=== PATIENT | male | born 1930 | race Caucasian/White ===

== ENCOUNTER 2019-03-07 18:51 | Inpatient (IN) | payer MEDICARE, OTHER ==
[~2019-03-07] VITALS: Ht 172.7 cm; Wt 70.5 kg
[2019-03-07 18:55] VITALS: Ht 172.7 cm; Wt 70.5 kg
--- NOTE | 2019-03-07 18:59 | NUR ---
PER MEDIC PT FAMILY CALLED WHEN PT SEEMED TO HAVE UNUSUAL WEAKNESS. PER MEDIC PT DOES NOT NORMALY HAVE SHAKING AND IS ABLE TO STAND. PER MEDIC PT UPON ARRIVE OTHOSTATIC VITALS WERE WITHIN PT NORMAL RANGE. PT RECEIVED 300CC BOLUS FROM MEDIC. PER FAMILY PT WAS POINTING TO STOMACH AND ID VOMIT TODAY. PER PT FAMILY "THINKS HE FAINTED" PER NO RESPONSE WHEN FAMILY WAS TRYING TO ORIENT PT. PER FAMILY PT HAS SYNCOPAL EPISODES OFTEN. VSS. NO TRAUMA NOTED. PT IS APHASIC AND IS NORMAL PER FAMILY. PERRLA NOTED. PER FAMILY PT IS NORMAL DEHYDRATED. NO DISTRESS NOTED. PER FAMILY PT IS NOW ACTING WITHIN NORMAL LIMITS. DR. WHITTAKER AT BEDSIDE FOR MSE.
--- NOTE | 2019-03-07 19:19 | NUR ---
REPORT GIVEN TO MAEGAN ALAS TO ASSUME CARE OF PT.
[2019-03-07] MEDS ORDERED: PROTONIX40 MG PO (19:26)
[2019-03-07] MEDS ORDERED: NAMENDA10 M2 PO (19:26)
[2019-03-07] MEDS ORDERED: ARICEPT5 MG PO (19:26)
[2019-03-07] MEDS ORDERED: FLO4 PO (19:27)
[2019-03-07] MEDS ORDERED: LOVASTATIN20 MG PO (19:27)
[2019-03-07] MEDS ORDERED: SEROQUEL25 MG PO (19:27)
--- NOTE | 2019-03-07 19:29 | NUR ---
PT PROVIDED WITH URINAL AND EDUCATED ON THE NEED FOR A URINE SAMPLE.
[2019-03-07 19:37] LABS: BASOPHIL % 0.9 % (0-2); PLATELET COUNT 165 x10^3mcL (130-400); RED CELL DISTRIBUTION WIDTH 13.5 % (11.5-14.5)
[2019-03-07 19:42] LABS: CARBON DIOXIDE 28.6 mmol/L (21-32); CHLORIDE SERUM 103 mmol/L (98-107); CREATININE SERUM 1.5 mg/dL (0.7-1.3); GLUCOSE SERUM 103 mg/dL (74-106); POTASSIUM SERUM 4.4 mmol/L (3.5-5.1); SODIUM SERUM 140 mmol/L (136-145)
[2019-03-07 19:48] LABS: ALBUMIN 3.6 g/dL (3.4-5.0); ALKALINE PHOSPHATASE 99 U/L (46-116); ALT/SGPT 19 U/L (16-63); AST/SGOT 22 U/L (15-37); BILIRUBIN TOTAL 0.6 mg/dL (0.20-1.00); CHOLESTEROL 171 mg/dL (<200); CHOLESTEROL/HDL RATIO 3.4; HDL CHOLESTEROL 50 mg/dL (40-60); LIPASE 217 IU/L (73-393); TOTAL PROTEIN, SERUM 7.2 g/dL (6.4-8.2); TRIGLYCERIDES 67 mg/dL (<150)
[2019-03-07 19:55] LABS: T3 TOTAL 0.99 ng/mL
--- NOTE | 2019-03-07 20:02 | NUR ---
PT OFF THE FLOOR FOR CT SCAN.
[2019-03-07 20:19] LABS: FREE T4 1.19 ng/dL (0.76-1.46); FREE THYROXINE INDEX 3.2 ug/dL (1.4-4.5); T4(THYROXINE) 8.3 ug/dL (4.7-13.3)
--- NOTE | 2019-03-07 21:01 | NUR ---
PT HAD AN EPISODE OF INCONTINENCE TO URINE. PT CLEANED AND SHEETS REPLACED. PT VITALS STABLE. NO ACUTE DISTRESS NOTED.
--- NOTE | 2019-03-07 21:02 | NUR ---
RT AT BEDSIDE TO DRAW ABG.
[2019-03-07 21:29] LABS: UA SPECIFIC GRAVITY <=1.005 (1.005-1.035); microscopic required? YES; urine erythrocyte TRACE (NEGATIVE)
--- NOTE | 2019-03-07 22:08 | NUR ---
GAVE REPORT TO EVETTE BONE TO ASSUME CARE OF PT.
--- NOTE | 2019-03-07 22:30 | NUR ---
RECEIVED PT FROM ED VIA [employer], CAME IN DUE TO SYNCOPE. PT IS ALERT AND AWAKE, W/ INCONHERENT WORDS. ABLE TO FOLLOW SIMPLE COMMANDS AT TIMES. NO FACIAL DROOP NOTED. HAND ENFORCEMENT MANAGER ARE EQUAL. NO SOB NOTED, LUNG SOUNDS DIMINISHED ON THE BASES, O2 SAT=97% RA. NO S/S OF CHEST PAIN/PRESSURE, SR ON THE MONITOR. NO S/S OF ABDOMINAL DISCOMFORT. URINE INCONTINENT. W/ ECCHYMOSIS ON RUE. IV SITE ON THE LAC IS PATENT AND INTACT. SIDE RAILS UPX2. CALL LIGHT ON REACH. HOB ELEVATED AT 45 DEG. SON AT BEDSIDE. WILL CONT TO MONITOR
[2019-03-07 23:14] VITALS: BP 117/98
--- NOTE | 2019-03-08 04:50 | NUR ---
PT HAS HIS EYES CLOSED, NO S/S OF PAIN AND SOB NOTED. PT'S SON AT BEDSIDE. STILL ON AIR MATTRESS. TURNED AND REPOSITIONED DURING THE SHIFT. IV SITE IS PATENT AND INTACT. SIDE RAILS UPX2. CALL LIGHT ON REACH. NEEDS ARE ATTENDED. WILL CONT TO MONITOR
--- NOTE | 2019-03-08 05:10 | NUR ---
RECEIVED PT FROM RADIO SURVEY WORKER RN SMITHA, BEDSIDE REPORT GIVEN. WILL CONTINUE TO MONITOR.
--- NOTE | 2019-03-08 05:10 | NUR ---
BEDSIDE REPORT GIVEN TO JU FOR CONTINUITY OF CARE
--- NOTE | 2019-03-08 05:57 | NUR ---
PT ANXIOUS AND AGITATED. DR. SOTO AT BEDSIDE SPEAKING WITH SON. PER DR. SOTO WILL ORDER SOMETHING FOR ANXIETY. LAB TECHNICAN AT BEDSIDE. WILL CONTINUE TO MONITOR.
[2019-03-08 06:27] LABS: BASOPHIL % 0.8 % (0-2); PLATELET COUNT 172 x10^3mcL (130-400); RED CELL DISTRIBUTION WIDTH 13.8 % (11.5-14.5)
[2019-03-08 06:28] VITALS: BP 159/64
[2019-03-08 07:07] LABS: CARBON DIOXIDE 28.1 mmol/L (21-32); CHLORIDE SERUM 107 mmol/L (98-107); CREATININE SERUM 1.3 mg/dL (0.7-1.3); MAGNESIUM 2.3 mg/dL (1.8-2.4); PHOSPHOROUS 3.5 mg/dL (2.5-4.9); POTASSIUM SERUM 3.7 mmol/L (3.5-5.1); SODIUM SERUM 146 mmol/L (136-145)
[2019-03-08 07:19] LABS: GLUCOSE SERUM 58 mg/dL (74-106)
--- NOTE | 2019-03-08 07:21 | NUR ---
PT IN BED SLEEPING. SON AT BEDSIDE. SON ASKING IF MEDICATION CAN BE GIVEN LATER. PER SON "HE HAS NOT SLEPT ALL NIGHT AND HE HAS BEEN UP FOR 10 HOURS. CAN WE JUST HOLD OFF UNTIL LATER" WILL CONTINUE TO MONITOR. CALL LIGHT IN REACH. BED IN LOWEST POSITION.
--- NOTE | 2019-03-08 07:27 | NUR ---
DR. CASTAÑEDA MADE AWARE OF GLUCOSE OF 58. PER DR. CASTAÑEDA WITH CHANGE IV FLUIDS FROM NS TO D5.
--- NOTE | 2019-03-08 08:26 | NUR ---
PT SITTING UP IN BED SLEEPING. SON AT BEDSIDE. PT CALM AT THIS TIME. GIVEN PO MEDS CRUSHED WITH PUDDING. PT TOLERATED WELL. SPOKE WITH DR. CASTAÑEDA PER DR. CASTAÑEDA DECREASE IV FLUIDS TO 10 ML/HR AND DR. CASTAÑEDA WILL ORDER ACCU CHECKS TO BE DONE ON PT. PT EATING BREAKFAST AND TOLERATING WELL. WILL CONTINUE TO MONITOR. CALL LIGHT IN REACH. BED IN LOWEST POSITION.
[2019-03-08 08:39] VITALS: BP 149/75
--- NOTE | 2019-03-08 09:07 | NUR ---
PT IN BED RESTING. PHYSICAL THERAPIST [place] WORKED WITH PT. PT TOLERATED WELL. PT CHANGED AND REPOSITIONED. NO ACUTE RESP DISTRESS NOTED ON RA. LAB AT BEDSIDE, DRAWING GLUCOSE. SPOKE WITH SON, PT EATS MORE SOFT FOODS AND DRINKS ENSURE AT HOME. PAGED DR. CASTAÑEDA SEE ABOUT CHANGING DIET, AWAITING CALL BACK. WILL CONTINUE TO MONITOR. CALL LIGHT IN REACH. BED IN LOWEST POSITION.
[2019-03-08 09:49] VITALS: BP 149/75
--- NOTE | 2019-03-08 11:27 | NUR ---
SPOKE WITH DR. CASTAÑEDA REGARDING PT DIET. PER DR. CASTAÑEDA WILL CHANGE DIET TO MECHANICAL SOFT DIET AND WILL ADD ENSURE.
--- NOTE | 2019-03-08 12:31 | NUR ---
PT IN BED. PT GETTING AGITATED. PT TRYING TO PUT BLANKETS OVER HIS FACE. NEPHEW AT BEDSIDE. NEPHEW STATES PT OFTEN GETS LIKE THIS AT HOME AND PT GETS SITALOPRAM. PAGED DR. CASTAÑEDA. AWAITING CALL BACK.
[2019-03-08 12:39] VITALS: BP 149/76
--- NOTE | 2019-03-08 13:06 | NUR ---
PT SITTING UP IN BED EATING LUNCH. PT CALMER AT THIS TIME. SON AT BEDSIDE. NO ACUTE RESP DISTRESS NOTED ON RA. SON STATES "HE NORMALLY GETS AGITATED AROUND THIS TIME AT HOME AND AROUND LATE EVENING. WE USUALLY GIVEN HIM SITALOPRAM AT HOME. I WILL FIND OUT THE DOSE AND LET YOU KNOW" WILL UPDATE MED REC ON RECEIVED. WILL CONTINUE TO MONITOR. CALL LIGHT IN REACH. BED IN LOWEST POSITION.
[2019-03-08] MEDS ORDERED: CITALOPRAM HYDR20 M1 PO (13:49)
--- NOTE | 2019-03-08 14:28 | NUR ---
PT SITTING UP IN BED. PT CHANGED AND REPOSITIONED ON LEFT SIDE. SCDS PLACED ON PT. PT ANXIOUS. SON AT BEDSIDE. SON STATES "HE NORMALLY GETS ANXIOUS AROUND THIS TIME." GIVEN HALDOL IM TO DANE. TOLERATED WELL. SPOKE WITH PHARMACIST REGARDING HALDOL PER PHARMACIST MONITOR PT FOR PROLONGED QT. COMMERCIAL DRONE PILOT CONCHA NOTIFIED. WILL CONTINUE TO MONITOR. CALL LIGHT IN REACH. BED IN LOWEST POSITION.
[2019-03-08 16:52] VITALS: BP 128/63
--- NOTE | 2019-03-08 17:30 | NUR ---
SON AT BEDSIDE. SON STATES PAIN HAS BEEN AGITATED SINCE RECEIVING HALDOL IM. SON STATES "HE HAS NOT STOPPED, HES MESSING WITH THE SHEETS, MESSING WITH IV. SON ASKING IF PT CAN HAVE SOMETHING TO RELAX. SPOKE WITH DR. CASTAÑEDA PER DR. CASTAÑEDA HE DOES NOT WANT TO GIVE PT ANY MORE SEDATIVES AT THIS TIME. PER DR. CASTAÑEDA WILL ORDER SOMETHING FOR THE PT TO BE ABLE TO SLEEP. SPOKE WITH SON AT BEDSIDE. SON OKAY WITH WAITING UNTIL NIGHT. WILL CONTINUE TO MONITOR. CALL LIGHT IN REACH. BED IN LOWEST POSITION.
--- NOTE | 2019-03-08 19:25 | NUR ---
PT RECEIVED AWAKE AND ALERT, CONFUSED, INCOMPREHENSIBLE SPEECH. TELE #15, NO S/S OF CP/PRESSURE OBSERVED. PULSES PALPABLE, NO EDEMA PRESENT. BREATHING IS EVEN AND UNLABORED, NO RESP DISTRESS NOTED. ABD SOFT AND NONDISTENDED, NO N/V PRESENT. PT HAS EPISODES OF URINARY INCONTINENCE. GENERALIZED WEAKNESS, ON AIR MATTRESS. ECCHYMOSIS TO RUE, TELEVISION ANTENNA INSTALLER. NO S/S OF PAIN OBSERVED. IVF INFUSING WELL TO LAC, SITE WNL. SON AT BEDSIDE. NO ACUTE DISTRESS NOTED. CALL LIGHT WITHIN REACH. WILL CONT TO MONITOR.
[2019-03-08 21:10] VITALS: BP 140/75
--- NOTE | 2019-03-08 21:10 | NUR ---
PT'S SON-ABDI REQUESTING ATIVAN FOR PT. PT'S SON STATES, "MY DAD HASN'T SLEPT FOR OVER 24 HRS AND HE'S BEEN SO RESTLESS. HIS SEROQUEL NORMALLY HELPS HIM FALL ASLEEP, BUT THAT DIDN'T HELP HIM AT ALL LAST NIGHT AND THEY SAID THEY WOULD GIVE HIM SOMETHING ELSE TO HELP HIM." DR THOMAS MADE AWARE, AWAITING ORDER AT THIS TIME.
--- NOTE | 2019-03-08 21:53 | NUR ---
DUE MEDS CRUSHED AND GIVEN WITH PUDDING. ASPIRATION PRECAUTIONS IN PLACE. PT TOLERATED WELL. ONE TIME ATIVAN PO GIVEN ORDERED PER EMAR. NO ACUTE DISTRESS NOTED. WILL CONT TO MONITOR.
--- NOTE | 2019-03-09 00:50 | NUR ---
PT RESTING IN BED WITH EYES CLOSED, BUT IS EASILY AROUSABLE. BREATHING IS EVEN AND UNLABORED, NO RESP DISTRESS NOTED. NO S/S OF PAIN OBSERVED. IVF INFUSING WELL, SITE WNL. NO ACUTE DISTRESS NOTED. CALL LIGHT WITHIN REACH. WILL CONT TO MONITOR.
[2019-03-09 06:26] VITALS: BP 155/84
[2019-03-09 06:33] LABS: BASOPHIL % 0.8 % (0-2); PLATELET COUNT 174 x10^3mcL (130-400); RED CELL DISTRIBUTION WIDTH 13.8 % (11.5-14.5)
--- NOTE | 2019-03-09 06:37 | NUR ---
PT SLEPT WELL THROUGHOUT THE EVENING. BREATHING IS EVEN AND UNLABORED, NO RESP DISTRESS NOTED. NO S/S OF PAIN OBSERVED. PT INCONTINENT OF URINE, PT CLEANED AND REPOSITIONED, OPTIFOAM PLACED. SKIN TO COCCYX AND BUTTOCKS IS WARM, DRY AND INTACT. NO ACUTE CHANGES ENCOUNTERED DURING SHIFT. ALL NEEDS MET AND ANTICIPATED. IVF INFUSING WELL, SITE WNL. CALL LIGHT WITHIN REACH, BED ALARM ON. WILL ENDORSE CARE TO AM NURSE.
--- NOTE | 2019-03-09 06:45 | NUR ---
PT'S SON-ABDI REQUESTING TO SPEAKING WITH ATTENDING DR REGARDING PT'S CARE. PT'S SON STATES, "I WOULD LIKE TO TALK TO HIS DR TO SEE IF THEY CAN CHANGE HIS IV ANTIBIOTICS TO AN ORAL ANTIBIOTICS SO WE CAN TRY TO TAKE HIM TODAY." INSTRUCTED SON THAT DRS ARE LIKELY TO MAKE ROUNDS IN THE AM, PT'S SON REQUESTING A CALL FROM DR IF HE IS NOT AT BEDSIDE. WILL ENDORSE TO AM NURSE. ABDI BEARD - .
[2019-03-09 07:05] LABS: CALCIUM 8.1 mg/dL (8.5-10.1); CARBON DIOXIDE 28.3 mmol/L (21-32); CHLORIDE SERUM 103 mmol/L (98-107); CREATININE SERUM 1.3 mg/dL (0.7-1.3); GLUCOSE SERUM 79 mg/dL (74-106); SODIUM SERUM 141 mmol/L (136-145)
[2019-03-09 07:06] LABS: MAGNESIUM 1.9 mg/dL (1.8-2.4); PHOSPHOROUS 3.9 mg/dL (2.5-4.9)
--- NOTE | 2019-03-09 07:25 | NUR ---
PT IS ALERT, CONFUSED WITH GARLED SPEECH. RESP EVEN AND UNLABORED. LUNG SOUNDS DIMINISHED BILATERALLY. ON R/A. TELE [address] READING NSR. ABDOMEN SOFT, NONTENDER, NONDISTENDED. BOWEL SOUNDS ACTIVE X 4 QUADS. DENIES N/V/D. SKIN CDI, NO EDEMA NOTED. PERINEAL REDNESS NOTED, HYDRAGUARD HAS BEEN APPLIED. PT ON [facility] SOFT CHOPPED DIET. AIR MATRESS IN PLACE. PT WILL BE TURNED AND REPOSITIONED Q 2 HOURS AND PRN. IV CATH TO LAC N/S LOCKED. SITE WNL. CALL LIGHT WITHIN REACH. FALL PROTOCOL MAINTAINED. ASPIRATIONS PRECAUTION IN PLACE. NO S/S OF PAIN OR DISCOMFORT AT THIS TIME. SON AT BEDSIDE.
--- NOTE | 2019-03-09 07:32 | NUR ---
PT IN NO ACUTE DISTRESS. CONTINUITY OF CARE ENDORSED TO KYARA ALAS. ALL QUESTIONS AND CONCERNS ADDRESSED.
[2019-03-09 08:21] VITALS: BP 147/89
--- NOTE | 2019-03-09 09:16 | NUR ---
PT'S FAMILY MEMBER DECLINED HHN TX AT 0800 THIS MORNING, ADVISED PT NEEDED HIS SLEEP AND NOT TO WAKE HIM AND TO COME BACK LATER. I CAME BACK TO SEE PT AT 0915 AND THE FAMILY SAID HE HAD JUST STARTED EATING BREAKFAST AND TO COME BACK AGAIN AT A LATER TIME. BOTH TIMES FAMILY WAS ADVISED TO USE CALL LIGHT IF PT NEEDED TX SOONER. WILL CONTINUE TO CHECK ON PT.
[2019-03-09] MEDS ORDERED: LEVAQUIN750 MG PO (09:24)
--- NOTE | 2019-03-09 09:43 | NUR ---
PT IS SITTING UP IN BED EATING BREAKFAST WITH SON ASSISTING WITH FEEDING. DUE MEDS GIVEN CRUSHED IN SUGAR FREE PUDDING. PT NOTED WITH COUGH AFTER DRINKING WATER. SON STATED PT HAS A HX OF COUGHING AFTER DRINKING THIN LIQUIDS. REPORTED OBSERVATION TO ARIADNA GREENE NP. ARIADNA STATED A SPEECH EVAL WILL BE ORDERED. SON AGREED WITH POC IF IT DOESN'T DELAY THE DISCHARGE UNTIL LATE AFTERNOON. BED IN LOWEST POSITION. CALL LIGHT WITHIN REACH. FALL PROTOCOL IN PLACE.
--- NOTE | 2019-03-09 10:23 | NUR ---
PT IS RECEIVING S/T EVAL AT THIS TIME.
--- NOTE | 2019-03-09 10:30 | NUR ---
S/T EVAL COMPLETED. PT IS TO HAVE PUREED DIET AND NTL. REPORTED TO ARIADNA GREENE NP. ARIADNA WILL NOTE NEW FINDING.
--- NOTE | 2019-03-09 10:35 | NUR ---
PT WAS SEEN FOR DYSPHAGIA. PT WAS ABLE TOS AFELY SWALLOW PUREE DIET WITH NECTAR THICK LIQUID WITHOUT S/S OF ASPIRATION. PT IS NOT IN POSITION FOR TRIALS OF MS DIET. PT HAD MILD COGH FOR THIN LIQUID PER FAMILY. RECOMMENDATION PUREE DIET WITH NECTAR THICK LIQUID SMALL BITES AND SIPS ONLY 1:1 SUPERVISION.
[2019-03-09 11:00] VITALS: BP 147/89
--- NOTE | 2019-03-09 12:11 | NUR ---
PT DISCHARGED TO HOME IN NO DISTRESS. DISCHARGE INSTRUCTIONS REVIEWED. ALL QUESTIONS ANSWERED, ALL FORMS SIGNED. RX GIVEN TO PT'S SON. IV CATH TO LAC REMOVED INTACT. SITE WNL. NO S/S OF INFECTION OR INFILTRATION. COVERED WITH GAUZE AND BANDAID. VS: T 97.7, HR 71, RR 17, B/P 147/89, O2 SAT=98% R/A. TELE MONITOR 15 TAKEN OFF PT AND RETURNED TO SALES MARKETING DIRECTOR. PT DENIES PAIN UPON DISCHARGE. PT TAKEN TO LOBBY IN W/C ASSISTED BY AZAR AND BOTH SONS.
== END 2019-03-09 12:00 | disposition home health service (06) | DRG 194 ==
LOC: ED 18:51 → MU 21:55 → DU 21:55 → MU 22:50 → DU 23:07
PROVIDERS: Specialist; ADMIT General Practice
DX: J18.9 Pneumonia, unspecified organism (principal); R47.01 Aphasia; R55 Syncope and collapse; R13.10 Dysphagia, unspecified; K80.20 Calculus of gallbladder without cholecystitis without obstruction; R32 Unspecified urinary incontinence; G47.30 Sleep apnea, unspecified; G30.9 Alzheimer's disease, unspecified; F02.80 Dementia in other diseases classified elsewhere, unspecified severity, without behavioral disturbance, psychotic disturbance, mood disturbance, and anxiety; F41.9 Anxiety disorder, unspecified; I10 Essential (primary) hypertension; Z96.653 Presence of artificial knee joint, bilateral; Z68.22 Body mass index [BMI] 22.0-22.9, adult
CPT/HCPCS: 36600; 82947; 82962; 83880; 84439; 92526-GN; 92610-GN; 97116-GP; G0378; J1630; J1956; J7030; J7620; Q0092

== ENCOUNTER 2019-11-14 20:26 | Inpatient (IN) | payer OTHER, MEDICARE ==
[~2019-11-14] VITALS: Ht 172.7 cm; Wt 79.4 kg
[~2019-11-14 20:26] MED LIST: ARICEPT5 MG PO; CITALOPRAM HYDR20 M1 PO; FLO4 PO; LEVAQUIN750 MG PO; LOVASTATIN20 MG PO; NAMENDA10 M2 PO; PROTONIX40 MG PO; SEROQUEL25 MG PO
[2019-11-14 21:37] LABS: BASOPHIL % 0.8 % (0-2); PLATELET COUNT 208 x10^3mcL (130-400); RED CELL DISTRIBUTION WIDTH 13.6 % (11.5-14.5)
[2019-11-14 21:41] LABS: CALCIUM 8.7 mg/dL (8.5-10.1); CARBON DIOXIDE 31.2 mmol/L (21-32); CHLORIDE SERUM 101 mmol/L (98-107); CREATININE SERUM 1.5 mg/dL (0.7-1.3); GLUCOSE SERUM 137 mg/dL (74-106); POTASSIUM SERUM 4.1 mmol/L (3.5-5.1); SODIUM SERUM 138 mmol/L (136-145)
[2019-11-14 21:46] LABS: ALKALINE PHOSPHATASE 117 U/L (46-116); ALT/SGPT 28 U/L (16-63); AST/SGOT 24 U/L (15-37); BILIRUBIN TOTAL 0.7 mg/dL (0.20-1.00); TOTAL PROTEIN, SERUM 7.7 g/dL (6.4-8.2)
[2019-11-14 21:47] LABS: ALBUMIN 3.3 g/dL (3.4-5.0)
[2019-11-14 22:01] LABS: C REACTIVE PROTEIN 1.2 mg/dL (<=0.9)
[2019-11-14] MEDS ORDERED: CIPRO500 MG PO (22:59)
[2019-11-14] MEDS ORDERED: BACTRIM1 TAB (22:59)
[2019-11-15] VITALS (7 sets, daily range): BP systolic 139–186; BP diastolic 72–97; Ht 172.7 cm; Wt 79.4 kg
[2019-11-15 05:39] LABS: BASOPHIL % 0.9 % (0-2); PLATELET COUNT 217 x10^3mcL (130-400); RED CELL DISTRIBUTION WIDTH 13.4 % (11.5-14.5)
[2019-11-15 05:53] LABS: CALCIUM 8.8 mg/dL (8.5-10.1); CARBON DIOXIDE 28.6 mmol/L (21-32); CHLORIDE SERUM 102 mmol/L (98-107); CREATININE SERUM 1.3 mg/dL (0.7-1.3); GLUCOSE SERUM 105 mg/dL (74-106); POTASSIUM SERUM 3.9 mmol/L (3.5-5.1); SODIUM SERUM 136 mmol/L (136-145)
[2019-11-15] MEDS ORDERED: COZAAR25 M1 PO (07:36)
[2019-11-16 04:17] LABS: UA SPECIFIC GRAVITY 1.025 (1.005-1.035); microscopic required? YES; urine erythrocyte 2+ (NEGATIVE)
[2019-11-16 06:10] VITALS: BP 172/80
[2019-11-16 06:21] VITALS: BP 155/72
[2019-11-16 07:24] LABS: BASOPHIL % 0.6 % (0-2); PLATELET COUNT 226 x10^3mcL (130-400); RED CELL DISTRIBUTION WIDTH 13.6 % (11.5-14.5)
[2019-11-16 07:33] LABS: ALKALINE PHOSPHATASE 121 U/L (46-116); ALT/SGPT 28 U/L (16-63); AST/SGOT 37 U/L (15-37); BILIRUBIN TOTAL 1.4 mg/dL (0.20-1.00); C REACTIVE PROTEIN 1.9 mg/dL (<=0.9); CALCIUM 8.8 mg/dL (8.5-10.1); CARBON DIOXIDE 26.6 mmol/L (21-32); CHLORIDE SERUM 102 mmol/L (98-107); CREATININE SERUM 1.5 mg/dL (0.7-1.3); GLUCOSE SERUM 97 mg/dL (74-106); MAGNESIUM 2.3 mg/dL (1.8-2.4); PHOSPHOROUS 3.5 mg/dL (2.5-4.9); POTASSIUM SERUM 3.9 mmol/L (3.5-5.1); SODIUM SERUM 139 mmol/L (136-145); TOTAL PROTEIN, SERUM 7.7 g/dL (6.4-8.2)
[2019-11-16 07:37] LABS: ALBUMIN 3.2 g/dL (3.4-5.0)
[2019-11-16 09:00] VITALS: BP 135/72
[2019-11-16 13:30] VITALS: BP 127/61
[2019-11-16 17:30] VITALS: BP 147/76
[2019-11-16 19:50] VITALS: BP 142/62
[2019-11-17 04:58] VITALS: BP 156/79
[2019-11-17 08:21] VITALS: BP 164/78
[2019-11-17 08:59] LABS: BASOPHIL % 0.7 % (0-2); PLATELET COUNT 218 x10^3mcL (130-400); RED CELL DISTRIBUTION WIDTH 13.3 % (11.5-14.5)
[2019-11-17 09:16] LABS: ALBUMIN 3.3 g/dL (3.4-5.0); ALKALINE PHOSPHATASE 121 U/L (46-116); ALT/SGPT 29 U/L (16-63); AST/SGOT 48 U/L (15-37); C REACTIVE PROTEIN 2.3 mg/dL (<=0.9); CALCIUM 8.7 mg/dL (8.5-10.1); CARBON DIOXIDE 25.7 mmol/L (21-32); CHLORIDE SERUM 103 mmol/L (98-107); CREATININE SERUM 1.5 mg/dL (0.7-1.3); GLUCOSE SERUM 104 mg/dL (74-106); MAGNESIUM 2.2 mg/dL (1.8-2.4); PHOSPHOROUS 3.6 mg/dL (2.5-4.9); POTASSIUM SERUM 3.6 mmol/L (3.5-5.1); SODIUM SERUM 139 mmol/L (136-145); TOTAL PROTEIN, SERUM 7.8 g/dL (6.4-8.2)
[2019-11-17] MEDS ORDERED: LEVAQUIN500 M1 PO (13:03)
[2019-11-17 13:42] VITALS: BP 158/85
[2019-11-17 14:28] VITALS: BP 158/85
[2019-11-17] MEDS ORDERED: SEROQUEL25 MG PO (15:56)
== END 2019-11-17 16:25 | disposition home or self-care (01) | DRG 137 ==
LOC: ED 20:26 → DU 23:14
PROVIDERS: Emergency Medicine; ADMIT Internal Medicine
DX: J69.0 Pneumonitis due to inhalation of food and vomit (principal); N17.0 Acute kidney failure with tubular necrosis; E43 Unspecified severe protein-calorie malnutrition; G30.9 Alzheimer's disease, unspecified; J44.9 Chronic obstructive pulmonary disease, unspecified; F02.80 Dementia in other diseases classified elsewhere, unspecified severity, without behavioral disturbance, psychotic disturbance, mood disturbance, and anxiety; F41.9 Anxiety disorder, unspecified; R32 Unspecified urinary incontinence; G47.33 Obstructive sleep apnea (adult) (pediatric); K21.9 Gastro-esophageal reflux disease without esophagitis; F32.9 Major depressive disorder, single episode, unspecified; E78.5 Hyperlipidemia, unspecified; N18.9 Chronic kidney disease, unspecified; Z79.899 Other long term (current) drug therapy; Z68.26 Body mass index [BMI] 26.0-26.9, adult
CPT/HCPCS: 83880; 85378; 87804; 92526-GN; 92610-GN; G0378; J0360; J1644; J1940; J1956; J2060; J2543; J3370; J3490; J7030; J7040; Q0092

== ENCOUNTER 2020-02-26 10:03 | Inpatient (IN) | payer OTHER, MEDICARE ==
[~2020-02-26] VITALS: Ht 172.7 cm; Wt 74.8 kg
[~2020-02-26 10:03] MED LIST changes: +BACTRIM1 TAB; +CIPRO500 MG PO; +COZAAR25 M1 PO; +LEVAQUIN500 M1 PO
[2020-02-26 10:22] VITALS: Ht 172.7 cm; Wt 74.8 kg
[2020-02-26 10:43] LABS: BASOPHIL % 0.7 % (0-2); PLATELET COUNT 208 x10^3mcL (130-400)
[2020-02-26 10:55] LABS: CALCIUM 8.6 mg/dL (8.5-10.1); CARBON DIOXIDE 29.4 mmol/L (21-32); CHLORIDE SERUM 102 mmol/L (98-107); GLUCOSE SERUM 166 mg/dL (74-106); POTASSIUM SERUM 4.3 mmol/L (3.5-5.1); SODIUM SERUM 138 mmol/L (136-145)
[2020-02-26 11:00] LABS: ALBUMIN 3.2 g/dL (3.4-5.0); ALKALINE PHOSPHATASE 127 U/L (46-116); ALT/SGPT 19 U/L (16-63); AST/SGOT 15 U/L (15-37); BILIRUBIN TOTAL 0.81 mg/dL (0.20-1.00); TOTAL PROTEIN, SERUM 7.6 g/dL (6.4-8.2)
[2020-02-26 14:39] LABS: C REACTIVE PROTEIN 1.4 mg/dL (<=0.9)
[2020-02-26 15:06] LABS: T3 TOTAL 0.78 ng/mL
[2020-02-26 15:15] LABS: FREE T4 1.01 ng/dL (0.76-1.46); FREE THYROXINE INDEX 2.3 ug/dL (1.4-4.5); T4(THYROXINE) 6.7 ug/dL (4.7-13.3)
[2020-02-26 15:19] LABS: MAGNESIUM 2.2 mg/dL (1.8-2.4)
[2020-02-26] MEDS ORDERED: SEROQUEL50 M1 PO (15:30)
[2020-02-26 16:41] VITALS: BP 113/68
[2020-02-26 20:35] VITALS: BP 167/73
[2020-02-26 22:00] VITALS: BP 115/62
[2020-02-27 06:05] VITALS: BP 171/77
[2020-02-27 06:42] VITALS: BP 151/67
[2020-02-27 08:10] VITALS: BP 162/63
[2020-02-27 09:20] LABS: microscopic required? YES; urine erythrocyte 1+ (NEGATIVE)
[2020-02-27 11:54] LABS: CALCIUM 8.6 mg/dL (8.5-10.1); CARBON DIOXIDE 29.8 mmol/L (21-32); CHLORIDE SERUM 101 mmol/L (98-107); CREATININE SERUM 1.5 mg/dL (0.7-1.3); GLUCOSE SERUM 145 mg/dL (74-106); POTASSIUM SERUM 3.7 mmol/L (3.5-5.1); SODIUM SERUM 138 mmol/L (136-145)
[2020-02-27 12:01] LABS: BASOPHIL % 0.6 % (0-2); PLATELET COUNT 223 x10^3mcL (130-400)
[2020-02-27 12:05] VITALS: BP 156/81
[2020-02-27 17:50] VITALS: BP 157/66
[2020-02-28 05:35] VITALS: BP 140/57
[2020-02-28] MEDS ORDERED: AUGMENTIN 875-1 EACH PO (16:39)
[2020-02-28 17:39] LABS: BASOPHIL % 0.6 % (0-2); PLATELET COUNT 211 x10^3mcL (130-400); RED CELL DISTRIBUTION WIDTH 14.4 % (11.5-14.5)
[2020-02-28 17:48] LABS: CALCIUM 8.3 mg/dL (8.5-10.1); CARBON DIOXIDE 34.4 mmol/L (21-32); CHLORIDE SERUM 105 mmol/L (98-107); CREATININE SERUM 1.7 mg/dL (0.7-1.3); GLUCOSE SERUM 128 mg/dL (74-106); POTASSIUM SERUM 4.1 mmol/L (3.5-5.1); SODIUM SERUM 141 mmol/L (136-145)
[2020-02-28 18:33] VITALS: BP 140/57
== END 2020-02-28 18:43 | disposition home health service (06) | DRG 139 ==
LOC: ED 10:03 → DU 14:26
PROVIDERS: Specialist; ADMIT Family Medicine; ATTEND Family Medicine
DX: J18.9 Pneumonia, unspecified organism (principal); N17.9 Acute kidney failure, unspecified; J44.0 Chronic obstructive pulmonary disease with (acute) lower respiratory infection; E11.22 Type 2 diabetes mellitus with diabetic chronic kidney disease; R55 Syncope and collapse; G30.9 Alzheimer's disease, unspecified; F02.80 Dementia in other diseases classified elsewhere, unspecified severity, without behavioral disturbance, psychotic disturbance, mood disturbance, and anxiety; J44.9 Chronic obstructive pulmonary disease, unspecified; R05 Cough; K21.9 Gastro-esophageal reflux disease without esophagitis; H91.90 Unspecified hearing loss, unspecified ear; N18.9 Chronic kidney disease, unspecified; Z96.653 Presence of artificial knee joint, bilateral; Z20.828 Contact with and (suspected) exposure to other viral communicable diseases; I12.9 Hypertensive chronic kidney disease with stage 1 through stage 4 chronic kidney disease, or unspecified chronic kidney disease; Z79.899 Other long term (current) drug therapy
CPT/HCPCS: 83880; 84439; 92526-GN; 92610-GN; C9113; G0378; J0456; J0696; J1644; J2060; J2543; J7030; J7050; Q0092; U0003-CS

== ENCOUNTER 2020-04-19 09:02 | Emergency (ER) | payer OTHER, MEDICARE ==
[~2020-04-19] VITALS: Ht 172.7 cm; Wt 54.4 kg
[~2020-04-19 09:02] MED LIST changes: +AUGMENTIN 875-1 EACH PO; +SEROQUEL50 M1 PO
[2020-04-19 09:05] VITALS: Ht 172.7 cm; Wt 54.4 kg
[2020-04-19 10:07] LABS: BASOPHIL % 0.4 % (0-2); PLATELET COUNT 197 x10^3mcL (130-400); RED CELL DISTRIBUTION WIDTH 13.4 % (11.5-14.5)
[2020-04-19 10:23] LABS: CALCIUM 8.5 mg/dL (8.5-10.1); CARBON DIOXIDE 28.3 mmol/L (21-32); CHLORIDE SERUM 103 mmol/L (98-107); CREATININE SERUM 1.7 mg/dL (0.7-1.3); GLUCOSE SERUM 133 mg/dL (74-106); POTASSIUM SERUM 4.6 mmol/L (3.5-5.1); SODIUM SERUM 136 mmol/L (136-145)
[2020-04-19 10:36] LABS: ALKALINE PHOSPHATASE 128 U/L (46-116); ALT/SGPT 27 U/L (16-63); AST/SGOT 21 U/L (15-37); BILIRUBIN TOTAL 0.79 mg/dL (0.20-1.00); MAGNESIUM 2.2 mg/dL (1.8-2.4)
[2020-04-19 10:38] LABS: ALBUMIN 3.3 g/dL (3.4-5.0)
[2020-04-19 12:19] VITALS: BP 144/60
== END 2020-04-19 12:19 | disposition home or self-care (01) ==
LOC: ED 09:02
PROVIDERS: Student in an Organized Health Care Education/Training Program
DX: N17.9 Acute kidney failure, unspecified (principal); I10 Essential (primary) hypertension; E11.9 Type 2 diabetes mellitus without complications; F03.90 Unspecified dementia, unspecified severity, without behavioral disturbance, psychotic disturbance, mood disturbance, and anxiety
CPT/HCPCS: 83880; Q0092

== ENCOUNTER 2020-06-16 11:49 | Inpatient (IN) | payer OTHER, MEDICARE ==
[~2020-06-16] VITALS: Ht 172.7 cm; Wt 81.6 kg
--- NOTE | 2020-06-16 12:30 | NUR ---
BIB [facility] AMB FOR FURTHER EVAL OF CHANGE IN LOC, AND INCREASE IN ALOC;PT HAS HX OF DEMENTIA, CHF AND PNEUMONIA, WELL UTI; PT SEEN BY PROVIDER, ORDERS RECD
[2020-06-16 12:34] VITALS: Ht 172.7 cm; Wt 81.6 kg
--- NOTE | 2020-06-16 13:02 | NUR ---
PT SEEN BY PROVIDER, ORDERS RECD; LABS DRAWN/IV INITIATED; UA STRAIGHT CATH COMPLETED AND SENT; S/W FAMILY MEMBER REGARDING PT HISTORY; CONT TO MONITOR
[2020-06-16 13:15] LABS: UA SPECIFIC GRAVITY 1.015 (1.005-1.035); microscopic required? YES; urine erythrocyte NEGATIVE (NEGATIVE)
[2020-06-16 13:30] LABS: CALCIUM 8.7 mg/dL (8.5-10.1); CARBON DIOXIDE 31.1 mmol/L (21-32); CHLORIDE SERUM 100 mmol/L (98-107); CREATININE SERUM 1.6 mg/dL (0.7-1.3); GLUCOSE SERUM 164 mg/dL (74-106); POTASSIUM SERUM 4.2 mmol/L (3.5-5.1); SODIUM SERUM 136 mmol/L (136-145)
[2020-06-16 13:35] LABS: ALKALINE PHOSPHATASE 144 U/L (46-116); ALT/SGPT 32 U/L (16-63); AST/SGOT 23 U/L (15-37); BILIRUBIN TOTAL 0.76 mg/dL (0.20-1.00); C REACTIVE PROTEIN 3.4 mg/dL (<=0.9); LACTIC DEHYDROGENASE (LDH) 349 U/L (100-190)
[2020-06-16 13:39] LABS: ALBUMIN 3.3 g/dL (3.4-5.0); TOTAL PROTEIN, SERUM 8.3 g/dL (6.4-8.2)
[2020-06-16 13:48] LABS: BASOPHIL % 0.6 % (0-2); PLATELET COUNT 227 x10^3mcL (130-400); RED CELL DISTRIBUTION WIDTH 13.4 % (11.5-14.5)
--- NOTE | 2020-06-16 14:35 | NUR ---
PT TO BE ADMITTED FOR FEVER OF UNKNOWN ORIGIN; FAMILY MEMBER UPDATED; WAITIONG ON ADDITONAL ORDERS
--- NOTE | 2020-06-16 15:00 | NUR ---
DR PATTERSON HERE FOR FURTHER EVAL AND ASSESSMENT; WAS ABLE TO S/W SON; FURTHER INFORMATION OBTAINED
[2020-06-16] MEDS ORDERED: TEMAZEPAM15 MG PO (15:17)
[2020-06-16] MEDS ORDERED: NASAL MIST126 ML (15:18)
--- NOTE | 2020-06-16 15:35 | NUR ---
BED ASSIGNMENT RECD; MED REC COMPLETED
--- NOTE | 2020-06-16 16:18 | NUR ---
REPORT GIVEN; 1ST ABX GIVEN, MARIPOSA WELL
--- NOTE | 2020-06-16 16:18 | NUR ---
PT TO GO TO CT PRIOR TO GOING TO INPATIENT BED
--- NOTE | 2020-06-16 18:15 | NUR ---
LATE ENTRY. PATIENT ARRIVED FROM ED WITH RN. PATIENT TRANSFERRED BED TO BED. PATIENT IS AWAKE AND ALERT. PATIENT IS A/OX1, DOES NOT SPEAK COHERENTLY. NO HISTORY COULD BE OBTAINED FROM PATIENT. PATIENT PLACED ON SOFT RESTRAINTS FOR SAFETY AND PATIENT PULLING ON IV LINES. PATIENT HAS MILD COUGH, ON ROOM AIR. IN ED PATIENT HAD NEGATIVE PARISH TEST, AND COVID PCR TEST TAKEN AND PENDING. DR CHRISTINA ORDERED DOWELL CATHETER INSERTION AND COVID PCR TEST. PLACED ON NPO STATUS AT THIS TIME. SPOKE WITH SON JEANNINE WHO IS DPOA. STATES PATIENT IS DNR AND DOES NOT WANT INTUBATION. ALSO STATES HE DOES NOT WANT PATIENT TO HAVE DOWELL CATHETER. REPORTS PATIENT HAS DEMENTIA AND CAN ONLY TOLERATE NECTAR THICKENED LIQUIDS, PUREED DIET, AND CRUSHED PO MEDICATIONS. STATES HE WANTS TO SPEAK WITH DR CHRISTINA ABOUT CODE STATUS AND NPO STATUS. DR CHRISTINA PAGED. CALL LIGHT IN REACH AT THIS TIME.
[2020-06-16 18:22] VITALS: BP 159/92
--- NOTE | 2020-06-16 19:02 | NUR ---
PT LYING IN BED. PT SHOWS NO S/S DISTRESS OR DISCOMFORT. PAGED DR. CHAO, STILL AWAITING CALL BACK. BREATHING EVEN, UNLABORED. WILL ENDORSE TO PM NURSE
--- NOTE | 2020-06-16 20:06 | NUR ---
RECEIVED PT CONFUSED, SPEAKS UNKNOWN LANGUAGE. FIDGETING WITH BLANKET. INCONTINENT. SPOKE WITH RESIDENT REGARDING DNR STATUS REQUESTED BY POA SON ALONG WITH REQUEST NOT TO HAVE DOWELL,NPO STATUS POSSIBLE SWALLOW EVAL. SIGNED ORDER FOR SOFT RESTRAINTS. IV PATENT AND INFUSING TO LEFT FA
[2020-06-16 21:27] VITALS: BP 105/84
--- NOTE | 2020-06-16 21:45 | NUR ---
SPOKE WITH SON ON THE PHONE. UPDATED HIM ON PLAN. WANTED TO KNOW IF PT NEEDS IV ANTIBIOTICS IF HE COULD GET A PIC LINE AND BE ADMINISTERED AT HOME WITH HOME HEALTH DUE TO HIM BEING CONFUSED, SPEAKING FOREIGN LANGUAGE AND ALONE HERE. WILL PASS ONTO DR. WOODS WHEN HE COMES BY. NO RESTRAINTS ON AT THIS TIME. PT SEEMS VERY CALM. SON ALSO CONCERNED HE HAS NOT EATEN ANYTHING. EATS WELL AT HOME JUST NEEDS A FEEDER ASSISTANCE AND THICKENED LIQUIDS. DOES NOT LIKE ANYTHING TOO COLD WELL.BED ALARM IN PLACE AND CALL LIGHT WITHIN REACH
[2020-06-17 05:37] VITALS: BP 144/69
--- NOTE | 2020-06-17 06:30 | NUR ---
PT CALM THROUGHOUT SHIFT. NO RESTRAINTS DURING SHIFT. AWAKE MOST OF SHIFT. NOT PULLING AT IV. FAMILY WANTS TO USE TABLET FOR FACETIME WITH PT LATER. WILL ENDORSE
[2020-06-17 07:20] LABS: BASOPHIL % 0.8 % (0-2); PLATELET COUNT 212 x10^3mcL (130-400); RED CELL DISTRIBUTION WIDTH 13.7 % (11.5-14.5)
--- NOTE | 2020-06-17 07:23 | NUR ---
RECIEVED REPORT FROM PM NURSE. PT IN NO ACUTE DISTRESS OR DISCOMFORT. WILL CONTINUE TO MONITOR. BED IN LOWEST POSITION, RAILS UP.
[2020-06-17 07:27] LABS: CALCIUM 8.8 mg/dL (8.5-10.1); CARBON DIOXIDE 28.7 mmol/L (21-32); CHLORIDE SERUM 102 mmol/L (98-107); CREATININE SERUM 1.5 mg/dL (0.7-1.3); GLUCOSE SERUM 96 mg/dL (74-106); MAGNESIUM 2.3 mg/dL (1.8-2.4); PHOSPHOROUS 2.7 mg/dL (2.5-4.9); POTASSIUM SERUM 4.3 mmol/L (3.5-5.1); SODIUM SERUM 139 mmol/L (136-145)
[2020-06-17 09:10] VITALS: BP 132/80
--- NOTE | 2020-06-17 10:16 | NUR ---
PT LYING IN BED. NO VISIBLE DISTRESS OR DISCOMFORT. BREATHING EVEN, UNLABORED. PT ABLE TO SWALLOW AND TOLERATE MEDICATION. WILL CONTINUET TO MONITOR. BED IN LOWEST POSITION, RAILS UP, CALL LIGHT WITHIN REACH
--- NOTE | 2020-06-17 11:34 | NUR ---
PT LYING IN BED COMFORTABLY. INFORMED TRACK LAYING EQUIPMENT OPERATOR ARIADNA DPOA WANTS TO CHANGE PT STATUS TO DNR AND DOES NOT WANT DOWELL INSERTION FOR PT. ALSO INFORMED TRACK LAYING EQUIPMENT OPERATOR DPOA STATES PT CAN SWALLOW PUREE DIET AND REQUEST FOR TRACK LAYING EQUIPMENT OPERATOR TO CALL DPOA. PT BREATHING EVEN, UNLABORED ON RA. WILL CONTINUE TO MONITOR. BED IN LOWEST POSITION, RAILS UP, CALL LIGHT WITHIN REACH.
[2020-06-17 12:30] VITALS: BP 132/87
--- NOTE | 2020-06-17 14:16 | NUR ---
PT LAYING IN BED. REPOSITIONED TO OFFLOAD PRESSURE POINTS. PT ATE 100% HOME FOOD. SWALLOWED W EASE, TOLERATES WELL. UPDATED DPOA ON PT STATUS. PT BREATHING EVEN, UNLABORED, NO ACUTE DISTRESS OR DISCOMFORT. WILL CONTINUE TO MONITOR. BED IN LOWEST POSITION, CALL LIGHT WITHIN REACH, RAILS UP.
--- NOTE | 2020-06-17 18:14 | NUR ---
PT LYING IN BED. BREATHING EVEN, UNLABORED. PT IN NO APPARENT DISTRESS OR DISCOMFORT. ATE 100% DINNER, SWALLOWED W/O ASPIRATING, TOLERATING WELL. WILL ENDORSE TO PM NURSE. BED IN LOWEST POSITION, CALL LIGHT WITHIN REACH, RAILS UP
--- NOTE | 2020-06-17 20:30 | NUR ---
ASSESSMENT COMPLETE PLAN OF CARE REVIEWED DEANGELO WRIST RESTRAINTS IN PLACE PT CONFUSED AND PULLING AT IV LINE WILL CONT TO MONITOR AND ASSESS
[2020-06-17 22:27] VITALS: BP 147/79
[2020-06-18] VITALS (7 sets, daily range): BP systolic 125–200; BP diastolic 57–90
--- NOTE | 2020-06-18 00:04 | NUR ---
SPOKE WITH PT SON UPDATE GIVEN NO SIGNIFICANT CHANGES APRIL CARE RENDERED TURNED AND REPOSITIONED CONDITION GUARDED WILL CONTINUE TO MONITOR AND ASSESS
--- NOTE | 2020-06-18 04:58 | NUR ---
NO SIGNIFICANT CHANGES RESTING WELL ALL NEEDS ANTICIPATED AND MET
[2020-06-18 07:24] LABS: BASOPHIL % 0.6 % (0-2); PLATELET COUNT 218 x10^3mcL (130-400); RED CELL DISTRIBUTION WIDTH 13.7 % (11.5-14.5)
[2020-06-18 07:33] LABS: CALCIUM 8.6 mg/dL (8.5-10.1); CARBON DIOXIDE 27.8 mmol/L (21-32); CHLORIDE SERUM 101 mmol/L (98-107); CREATININE SERUM 1.3 mg/dL (0.7-1.3); GLUCOSE SERUM 135 mg/dL (74-106); POTASSIUM SERUM 3.9 mmol/L (3.5-5.1); SODIUM SERUM 136 mmol/L (136-145)
--- NOTE | 2020-06-18 10:21 | NUR ---
PATIENT IS AOX1, NONVERBAL, HX DEMENTIA. SMILING AND MAKING APPROPRIATE FACIAL EXPRESSIONS. ON ROOM AIR RESPIRATIONS EVEN AND UNLABORED. NORMAL SINUS RHYTHM ON GENERAL DENTIST/OWNER. TOLERATING PUREED DIET WITH NO DIFFICULTY SWALLOWING. ATE 100% OF MEAL AND FOOD BROUGHT FROM HOME. INCONTINENT OF BOWEL AND BLADDER. NO SIGNS OF PAIN NOTED. IV FLUIDS INFUSING. UDPATED SON, KARTHIK ON PLAN OF CARE. WILL CONTINUE TO MONITOR.
--- NOTE | 2020-06-18 15:51 | NUR ---
PATIENT PCR COVID IS NEGATIVE. UPDATED SON, KARTHIK ON RESULTS. SON IS AWARE OF PLAN OF CARE. PATIENT IS COOPERATIVE AND PLEASANT, ABLE TO FACETIME WITH FAMILY BUT NONVERBAL. APPETITE IS GOOD. REPOSITIONED Q2 AND SKIN KEPT CLEAN AND DRY. WILL CONTINUE TO MONITOR.
--- NOTE | 2020-06-18 18:23 | NUR ---
PATIENT IS MORE ALERT, TALKING WITH GARBLED SPEECH. PATIENT ABLE TO TOLERATE ALL MEALS WITH GREAT APPETITE. ORAL CARE DONE. FALL AND SAFETY PRECAUTIONS IN PLACE. WILL ENDORSE TO NIGHT RN
--- NOTE | 2020-06-18 19:20 | NUR ---
PT RECEIVED IN BED, AWAKE AN ALERT RESPONDS TO VERBAL AND TACTILE STIMULI, PT UNABLE TO MAKE NEEDS KNOWN, UNABLE TO FOLLOW COMMANDS, SPEECH IS GARBLED.RESP IS EVEN AND UNLABORED, SPO2 95% ON RA. RADIAL AND PEDAL PULSES PRESENT, NO EDEMA NOTED. NO C/O CHEST PAIN. SKIN IS WARM, DRY AND INTACT. IV SITE ON LFA NOT PATENT, NOT FLUSHING, SURROUNDING AREA SLIGHTLY RED AND SALINE LOCKED. WILL ATTEMPT TO REINSERT A NEW IV ACCESS AND DC THE LFA. ABD ROUND AND SOFT, ACFTIVE BS PRESENT X4 LBM /, NO REPORTED NVD. PT INCONTINENT TO B/B, NO REPORT OF HEMATURIA, OR DISCOMFORT UPON URINATION. BED TO LOWEST POSITION, SAFETY PROTOCOLS IN PLACED. CALL LIGHT WITHIN REACH, WILL PROVIDE FREQUENT VISUAL MONITORING.
--- NOTE | 2020-06-18 22:30 | NUR ---
PT RECEIVED IN BED, AWAKE AN ALERT RESPONDS TO VERBAL AND TACTILE STIMULI, PT UNABLE TO MAKE NEEDS KNOWN, UNABLE TO FOLLOW COMMANDS, SPEECH IS GARBLED.RESP IS EVEN AND UNLABORED, SPO2 95% ON RA. RADIAL AND PEDAL PULSES PRESENT, NO EDEMA NOTED. NO C/O CHEST PAIN. SKIN IS WARM, DRY AND INTACT. IV SITE ON LFA NOT PATENT, NOT FLUSHING, SURROUNDING AREA SLIGHTLY RED AND SALINE LOCKED. WILL ATTEMPT TO REINSERT A NEW IV ACCESS AND DC THE LFA. ABD ROUND AND SOFT, ACFTIVE BS PRESENT X4 LBM 12/, NO REPORTED NVD. PT INCONTINENT TO B/B, NO REPORT OF HEMATURIA, OR DISCOMFORT UPON URINATION. BED TO LOWEST POSITION, SAFETY PROTOCOLS IN PLACED. CALL LIGHT WITHIN REACH, WILL PROVIDE FREQUENT VISUAL MONITORING.
--- NOTE | 2020-06-18 22:30 | NUR ---
PT RE INSERTED NEW IV ACCESS SITE ON THE RH 22G WITH GOOD BLOOD RETURN, PATENT AND FLUSHING WELL, PT MARIPOSA PROCEDURE WELL. OLD IV SITE ON LFA DC'D, CATHETER INTACT, NO BLEEDING NOTED, COVERED WITH DD.
--- NOTE | 2020-06-19 02:20 | NUR ---
PATIENT LAYING ON HIS RIGHT SIDE
[2020-06-19 05:35] VITALS: BP 152/70
--- NOTE | 2020-06-19 07:04 | NUR ---
PT IN BED RESTING COMFRTABLY AWAKE. NO C/O PAIN, NO ACUTE DISTRESS NOTED. RESP IS EVEN AND UNLABORED. NEEDS ATTENDED AND MET, FREQUENT VISUAL MONITORING RENDERED. BED TO LOWEST POSITION, CALL LIGHT WITHIN REACH, WILL CONT TO MONITOR AND ENDORSE TO NEXT SHIFT NURSE.
--- NOTE | 2020-06-19 07:20 | NUR ---
RECEIVED PT FROM DRUM PULLER. ASSESSED AND DOCUMENTED. DENIES PAIN THIS TIME. STABLE. SAFTEY PRECAUTIONS ARE IN PLACE. WILL MONITOR.
--- NOTE | 2020-06-19 08:00 | NUR ---
INSERTED NEW IV TO LFA WITH GOOD BLOOD RETURN. DENIES ANY PAIN.
[2020-06-19 08:49] VITALS: BP 153/56
--- NOTE | 2020-06-19 10:03 | NUR ---
RECEIVED TELEPHONE READBACK ORDER FROM DR WOODS. DR WOODS ORDERED LUMBAR OUNCTURE UNDER FLOROSCOPY BY RADIOLOGIST. SEND SPINAL FLUID FOR THE FOLLOWING TESTING; CELL COUNT AND DIFFERENTIAL, GRAM STAIN AND CULTURE, GLUCOSE, PROTEIN. OBTAIN CONSENT FROM SON IF NEEDED. ORDER READBACK AND CONFIRMED. ALL QUESTIONS AND CONCERNS ADDRESSED.
--- NOTE | 2020-06-19 12:30 | NUR ---
RADIOLOGY CALLED AND INFORMED ACCORDING TO RADIOLGIST, THEY NEED ATTENDING DOCTOR TO ATTEMPT LP FIRST, THEN ONLY THEY CAN DO LP. INFORMED AND . CHARGE NURSE AWARE. PT IS STABLE. DENIES ANY PAIN.
[2020-06-19 12:54] VITALS: BP 145/67
[2020-06-19 17:11] VITALS: BP 180/79
--- NOTE | 2020-06-19 17:20 | NUR ---
PT IS STABLE. DENIES ANY PAIN. UI ARCHITECT REPORTED BP 180/79 BUT UI ARCHITECT WAS CHANGING THE PT, WILL RECHECK AGAIN, ASYMPTAMATIC. TRANSFER PT TO ROOM 241B AND ENDORSE CARE, GAVE REPORT.
--- NOTE | 2020-06-19 18:00 | NUR ---
RECEIVED PT A TRANSFER FROM [address] [place] [address]. PT CONFUSED AND AGITATED, CONSISTENT WITH HX. BP ELEVATED ON IN HOME SALES CONSULTANT AT 172/83. WILL MONITOR AND CONTACT MD. ALL OTHER VS STABLE: HR 78 BPM, RR 20 BREATHS, SAO2 97% ON ROOM AIR. NOT IN ANY ACUTE DISTRESS. WILL CONTINUE TO MONITOR.
[2020-06-19 18:10] VITALS: BP 157/83
--- NOTE | 2020-06-19 19:30 | NUR ---
MD ADVISED THAT PT COULD BENEFIT FROM FAMILY CONTACT THROUGH VIDEO, POSSIBLY REDUCING ANXIETY AND HYPERTENSION EPISODES. LAST BP WAS 157/83 AND NO PRN ANTIHYPERTENSIVE WAS GIVEN. NO ACUTE DISTRESS NOTED. CARE ENDORSED TO NIGHT NURSE.
[2020-06-19 21:24] VITALS: BP 172/76
--- NOTE | 2020-06-20 | NUR ---
PATIENT LAYING ON HER BACK
--- NOTE | 2020-06-20 01:52 | NUR ---
06/19/20 2200 Patient received in bed , awake . called spouse and son. Lily was able to face time with them. Blood Pressue was high , hydralazien given . Cedrictent was fed , family brought lentils for him. patient was cleaned and turned
--- NOTE | 2020-06-20 02:00 | NUR ---
PATIENT ON HIS LEFT SIDE
--- NOTE | 2020-06-20 04:05 | NUR ---
PATIENT TO B E TURNED EVERY 2 HOURS
[2020-06-20 05:58] VITALS: BP 129/56
[2020-06-20 07:26] LABS: ALKALINE PHOSPHATASE 141 U/L (46-116); ALT/SGPT 35 U/L (16-63); AST/SGOT 30 U/L (15-37); BILIRUBIN TOTAL 0.86 mg/dL (0.20-1.00); CALCIUM 8.8 mg/dL (8.5-10.1); CHLORIDE SERUM 101 mmol/L (98-107); CREATININE SERUM 1.3 mg/dL (0.7-1.3); GLUCOSE SERUM 143 mg/dL (74-106); POTASSIUM SERUM 4.2 mmol/L (3.5-5.1); SODIUM SERUM 134 mmol/L (136-145); TOTAL PROTEIN, SERUM 7.6 g/dL (6.4-8.2)
[2020-06-20 08:07] VITALS: BP 142/78
[2020-06-20 13:00] VITALS: BP 112/64
[2020-06-20 17:15] VITALS: BP 132/59
--- NOTE | 2020-06-20 19:39 | NUR ---
handoff to Catrina, VS stable, no pain
--- NOTE | 2020-06-20 19:45 | NUR ---
RECEIVED PT FROM AM NURSE AWAKE AND ALERT, UNABLE TO MAKE NEEDS KNOWN, CONFUSED, HX. DEMENTIA. MED SURG, NO S/S OF CHEST PAIN/ CHEST PRESSURE. PULSES PALPABLE/ NO EDEMA. RESPIRATIONS E/U ON RA, NO RESPIRATORY DISTRESS. ACTIVE BS X 4 QUADS, ABD SOFT AND NON TENDER, LAST BM 06/20. INCONTINENT OF B/B. FALL PRECAUTIONS IN PLACE. GENERALIZED WEAKNESS. SKIN INTACT, DENIES PAIN. IV TO LFA INTACT, NO ERYTHEMA, NO INFILTRATION. PERIODS OF RESTLESS AND AGITATION. BED ALARM ON. TURNED AND RE-POSITIONED Q 2 HRS, ALL NEEDS MET. CALL BUTTON WITHIN REACH, WILL CONTINUE TO MONITOR.
[2020-06-20 21:24] VITALS: BP 114/65
--- NOTE | 2020-06-21 00:08 | NUR ---
PT IN BED AWAKE AND RESTLESS, RESP E/U ON RA, NO S/S OF PAIN. BED ALARM ON, ALL NEEDS MET. PT CLEANED AND TURNED. CALL BUTTON WITHIN REACH, WILL CONTINUE TO MONITOR.
[2020-06-21 05:12] VITALS: BP 153/79
--- NOTE | 2020-06-21 06:45 | NUR ---
PT SLEPT IN INTERVALS THROUGHOUT THE NIGHT, BUT EASILY AROUSABLE. RESPIRATIONS E/U ON RA. IV TO LFA PATENT, SL, FLUSHING WELL. NO ACUTE CHANGES OVERNIGHT. PT REMAINS NPO FOR LUMBAR PUNCTURE. PT'S SON CALLED AND GIVEN UPDATE, PT'S SON GRATEFUL FOR UPDATE. NO ACUTE CHANGES OVERNIGHT. CALL BUTTON WITHIN REACH, WILL ENDORSE CARE TO AM NURSE.
[2020-06-21 07:22] LABS: BASOPHIL % 0.8 % (0-2); PLATELET COUNT 231 x10^3mcL (130-400); RED CELL DISTRIBUTION WIDTH 12.5 % (11.5-14.5)
[2020-06-21 07:37] LABS: CALCIUM 8.7 mg/dL (8.5-10.1); CARBON DIOXIDE 27.5 mmol/L (21-32); CHLORIDE SERUM 103 mmol/L (98-107); CREATININE SERUM 1.5 mg/dL (0.7-1.3); GLUCOSE SERUM 100 mg/dL (74-106); POTASSIUM SERUM 3.9 mmol/L (3.5-5.1); SODIUM SERUM 138 mmol/L (136-145)
[2020-06-21 08:11] VITALS: BP 141/74
--- NOTE | 2020-06-21 09:12 | NUR ---
RECIEVED PT IN A STABLE CONDITION. HE IS AN 89Y MALE ADMITTED ON 06/16 WITH A CC OF CONFUSION,GEN WEAKNESS, AND FEVER. HE IS FULL CODE, AAOX1 WITH CONFUSION. PULSES PALPABLE THROUGHOUT AND NO EDEMA NOTED. HE IS ON ROOM AIR WITH LUNGS CTA AND SAT AT 96%. ABDOMEN SOFT AND NORMOACTIVE X4. HE HAS BEEN NPO SINCE MIDNIGHT IN PREPARATION FROM HIS LUMBAR PUNCTURE. GEN WEAKNESS NOTED AND SKIN WNL. BED IS IN THE LOW POSITION WITH CALL LIGHT IN REACH. WILL CONTINUE TO MONITOR.
--- NOTE | 2020-06-21 13:00 | NUR ---
RECEIVED PT FROM RN. PT LAYING IN BED NO ACUTE DISRESS NOTED. PT IS AWAKE AND ALERT BUT IS UNABLE TO STATE HIS NAME//PLACE/SITUATION. UNABLE TO FOLLOW COMMANDS AND TO MAKE NEEDS KNOWN. NO CP AND PRESSURE AT THIS TIME. PULSES +, - EDEMA. NO RESP DISTRES NOTED, ON RA. NO N/V/D AT THIS TIME. SKIN INTACT. NO PAIN NOTED AT THIS TIME. SALINE LOCKED ON LFA 20G ON R HAND, PATENT AND FLUSHING AT THIS TIME. WILL CONT TO MONITOR PT. ALL NEEDS ATTENDED AT THIS TIME. CALL LIGHT WITHIN REACH. BED IN LOWEST POSITION.
[2020-06-21 13:47] VITALS: BP 158/69
--- NOTE | 2020-06-21 17:41 | NUR ---
ASSISTED PT TO SPEAK WITH FAMILY MEMBER VIA CELLPHONE. PT AWAKE AND ALERT. ALL NEEDS ATTENDED AT THIS TIME.
[2020-06-21 17:54] VITALS: BP 94/75
[2020-06-21] MEDS ORDERED: SEROQUEL50 M1 PO (18:24)
[2020-06-21 18:47] VITALS: BP 94/75
[2020-06-21] MEDS ORDERED: CITALOPRAM20 MG/10 M PO (18:57)
[2020-06-21 19:30] VITALS: BP 158/82
--- NOTE | 2020-06-21 19:32 | NUR ---
ENDORSED PT TO SOFT TILE SETTER RN. PT WILL BE DC-ED TONIGHT AND WILL BE PICKED UP BY HIS SON LINDA. SPOKE WITH DR. RANDHAWA REGARDING PTS DISCHARGE. PT AWAKE AND ALERT. NO ACUTE DISTRESS NOTED. PT ON RA, NO SOB/PAIN NOTED. ALL NEEDS ATTENDED AT THIS TIME.
--- NOTE | 2020-06-21 21:00 | NUR ---
PT IV REMOVED. PT CLEANED UP AND DRESSED. PLACED CHUX PLACED. SPOKE WITH DR. SHEIKH AND HE UPDATED PT'S FAMILY REGARDING PHYSICAL THERAPY ORDERS FOR HOME. ORDER PLACED AND PT'S SON WILL FOLLOW UP TOMORROW AM WITH WHEELCHAIR VAN OPERATOR FIRST RESPONDER TO SET UP PT AT HOME. PT WILL BE DOING A LUMBAR PUNCTURE OUTPATIENT. PT IS A FULL TWO PERSON TRANSFER INTO WHEELCHAIR. YELLS AND SWINGS AT TIMES WHEN TRYING TO ASSIST HIM. CONFUSED AND LANGUAGE BARRIER PROBLEMS. ESCORTED PT DOWN TO CAR VIA WHEELCHAIR. NO DISTRESS NOTED. BELONGINGS WITH PT.
== END 2020-06-21 21:05 | disposition home or self-care (01) | DRG 133 ==
LOC: ED 11:49 → MU 14:55 → DU 14:55 → MU 16:36 → DU 20:13 → MU 06-18 13:50
PROVIDERS: Emergency Medicine; ADMIT Internal Medicine; ATTEND Internal Medicine
DX: J96.21 Acute and chronic respiratory failure with hypoxia (principal); N17.9 Acute kidney failure, unspecified; E11.22 Type 2 diabetes mellitus with diabetic chronic kidney disease; G30.9 Alzheimer's disease, unspecified; J98.6 Disorders of diaphragm; F02.80 Dementia in other diseases classified elsewhere, unspecified severity, without behavioral disturbance, psychotic disturbance, mood disturbance, and anxiety; N39.0 Urinary tract infection, site not specified; F41.9 Anxiety disorder, unspecified; J44.9 Chronic obstructive pulmonary disease, unspecified; R32 Unspecified urinary incontinence; N18.30 Chronic kidney disease, stage 3 unspecified; I12.9 Hypertensive chronic kidney disease with stage 1 through stage 4 chronic kidney disease, or unspecified chronic kidney disease; Z20.828 Contact with and (suspected) exposure to other viral communicable diseases; Z87.01 Personal history of pneumonia (recurrent); Z87.440 Personal history of urinary (tract) infections
CPT/HCPCS: 82962; 83880; 85378; 87804; 97530-GP; G0378; J0360; J0696; J1580; J1815; J7030; U0003

== ENCOUNTER 2020-08-04 10:35 | Inpatient (IN) | payer OTHER, MEDICARE, SELFPAY ==
[~2020-08-04] VITALS: Ht 172.7 cm; Wt 79.4 kg
[~2020-08-04 10:35] MED LIST changes: +CITALOPRAM20 MG/10 M PO; +NASAL MIST126 ML; +TEMAZEPAM15 MG PO
[2020-08-04 11:13] VITALS: Ht 172.7 cm; Wt 79.4 kg
[2020-08-04 12:43] LABS: PLATELET COUNT 219 x10^3mcL (152-348); RED CELL DISTRIBUTION WIDTH 13.9 % (12.1-16.2)
[2020-08-04 13:00] LABS: CHLORIDE SERUM 103 mmol/L (98-107); CREATININE SERUM 1.6 mg/dL (0.7-1.3); GLUCOSE SERUM 133 mg/dL (74-106); POTASSIUM SERUM 4.7 mmol/L (3.5-5.1); SODIUM SERUM 136 mmol/L (136-145)
[2020-08-04 13:04] LABS: ALBUMIN 3.5 g/dL (3.4-5.0); ALKALINE PHOSPHATASE 144 U/L (46-116); ALT/SGPT 23 U/L (16-63); AST/SGOT 15 U/L (15-37); BILIRUBIN TOTAL 0.8 mg/dL (0.20-1.00); CHOLESTEROL 173 mg/dL (<200); TOTAL PROTEIN, SERUM 7.9 g/dL (6.4-8.2)
[2020-08-04] MEDS ORDERED: PRO40 PO (14:06)
[2020-08-04] MEDS ORDERED: NAMENDA10 M2 PO (14:06)
[2020-08-04] MEDS ORDERED: LOVASTATIN10 MG PO (14:06)
[2020-08-04] MEDS ORDERED: ARICEPT10 MG PO (14:06)
[2020-08-04] MEDS ORDERED: LEXAPRO10 MG PO (14:07)
[2020-08-04] MEDS ORDERED: EYE DROPS REDNE15 ML (14:07)
[2020-08-04] MEDS ORDERED: RES15 PO (14:07)
[2020-08-04] MEDS ORDERED: TAMSULOSIN HCL0.4 MG PO (14:07)
[2020-08-04] MEDS ORDERED: IPRATROPIUM BRO30 M1 (14:08)
[2020-08-04 16:23] LABS: MAGNESIUM 2.5 mg/dL (1.8-2.4); PHOSPHOROUS 3.3 mg/dL (2.5-4.9)
[2020-08-04 19:03] VITALS: BP 164/78
[2020-08-04 21:25] VITALS: BP 139/90
[2020-08-05 05:49] VITALS: BP 169/88
[2020-08-05 08:17] LABS: PLATELET COUNT 252 x10^3mcL (152-348); RED CELL DISTRIBUTION WIDTH 13.8 % (12.1-16.2)
[2020-08-05 08:41] LABS: CHLORIDE SERUM 101 mmol/L (98-107); CREATININE SERUM 1.3 mg/dL (0.7-1.3); GLUCOSE SERUM 111 mg/dL (74-106); MAGNESIUM 2.2 mg/dL (1.8-2.4); PHOSPHOROUS 2.4 mg/dL (2.5-4.9); POTASSIUM SERUM 3.5 mmol/L (3.5-5.1); SODIUM SERUM 139 mmol/L (136-145)
[2020-08-05 08:54] VITALS: BP 156/74
[2020-08-05 12:14] VITALS: BP 137/92
[2020-08-05 13:06] VITALS: BP 122/65
[2020-08-05 16:30] VITALS: BP 104/55
== END 2020-08-05 16:51 | disposition home or self-care (01) | DRG 204 ==
LOC: ED 10:35 → DU 14:27
PROVIDERS: Specialist; ADMIT Family Medicine; ATTEND Family Medicine
DX: R55 Syncope and collapse (principal); E11.22 Type 2 diabetes mellitus with diabetic chronic kidney disease; E11.65 Type 2 diabetes mellitus with hyperglycemia; G30.9 Alzheimer's disease, unspecified; F02.80 Dementia in other diseases classified elsewhere, unspecified severity, without behavioral disturbance, psychotic disturbance, mood disturbance, and anxiety; J44.9 Chronic obstructive pulmonary disease, unspecified; F41.9 Anxiety disorder, unspecified; I12.9 Hypertensive chronic kidney disease with stage 1 through stage 4 chronic kidney disease, or unspecified chronic kidney disease; N18.30 Chronic kidney disease, stage 3 unspecified; Z96.653 Presence of artificial knee joint, bilateral; Z20.822 Contact with and (suspected) exposure to COVID-19; T50.905A Adverse effect of unspecified drugs, medicaments and biological substances, initial encounter; Y92.89 Other specified places as the place of occurrence of the external cause
CPT/HCPCS: 82962; 90658; G0378; G0480; J7030; U0003